=== PATIENT | male | born 1965 | race Two or more races ===

== ENCOUNTER 2025-09-15 18:15 | Emergency (ER) | payer MEDICAID ==
[~2025-09-15] VITALS: Ht 177.8 cm; Wt 78.0 kg
[2025-09-15 21:02] VITALS: TEMP 98.1
[2025-09-15 22:09] LABS: PLATELET COUNT (AUTO) 301 K/uL (150-450); RED BLOOD CELL COUNT(AUTO) 5.41 MIL/uL (4.50-5.90); RED CELL DISTRIBUTION WIDTH 15.3 % (11.5-14.5); WHITE BLOOD COUNT (AUTO) 8.8 K/uL (4.5-11.0)
[2025-09-15 22:19] LABS: CALCIUM, TOTAL 9.0 mg/dL (8.8-10.5); CREATININE 0.96 mg/dL (0.60-1.30); GLOMERULAR FILTR. RATE CALC > 60 mL/min (>60); GLUCOSE,RANDOM 98 mg/dL (70-110); SODIUM SERUM 137 mmol/L (136-145); UREA NITROGEN, BLOOD 20 mg/dL (7-18)
[2025-09-15 22:25] LABS: ASPARTATE AMINOTRANSFERASE 35.0 U/L (15-37); TOTAL PROTEIN, SERUM 8.0 g/dL (6.4-8.2)
[2025-09-15 23:01] VITALS: BP 143/90; PULSE 52; RESP 16; O2SAT 99
[2025-09-15 23:13] LABS: APPEARANCE,URINE CLEAR (CLEAR); GLUCOSE, URINE (UA) NEGATIVE (NEGATIVE); LEUKOCYTE ESTERASE ,URINE NEGATIVE (NEGATIVE); NITRATE,URINE NEGATIVE (NEGATIVE); OCCULT BLOOD,URINE NEGATIVE (NEGATIVE); SPECIFIC GRAVITIY, URINE 1.030 (1.003-1.030)
== END 2025-09-15 23:40 | disposition home or self-care (01) ==
LOC: EMS 18:18
DX: K64.4 Residual hemorrhoidal skin tags (principal); K62.5 Hemorrhage of anus and rectum; Z87.19 Personal history of other diseases of the digestive system
CPT/HCPCS: 80048; 80076; 81003; 83690; 85025; 99283